=== PATIENT | male | born 1990 | race Caucasian/White ===

== ENCOUNTER 2024-10-07 01:42 | Emergency (ER) | payer BC, SELFPAY ==
--- OUTSIDE RECORDS SUMMARY | 2023-09-13 08:30 | XMS_ITS ---
Author Organization [facility] Address [address] [place] [address] Care Team Providers Care Service Superintendent Name Role Phone Reina Landeros Primary Care Provider [phone] REASON FOR VISIT bh-skin piler Encounters Encounter Location Date Provider Diagnosis [facility] [address] [place] [address] 09/13/2023 Reina Landeros Plan Of Treatment No Information Progress Notes * ANNA TOUSSAINTDOB: [birth year] (34 yo M)Acc No.[id number]:09/13/2023 Consult - Patient Patient: ANNA DON Provider: Bessy Landeros :1990 A ge:33 Y S ex:Male Date:09/13/2023 Address:[address] [place], [place] [id number] Subjective: * Chief Complaints: * 1 . Bh-skin piler. Objective: Therapeutic Interventions: Assessment: Plan: * Images: Care Plan Details* * Electronic signature of WILL Baez on 10/07/2024 at 01:51 AM EDT Sign off status: Pending * Provider: Bessy Landeros Date: 09/13/2023 Generated for Spencer winter/Jayden/Radha on: 10/07/2024 01:51 AM EDT
[2024-10-07 01:49] VITALS: BP 132/86; PULSE 88; TEMP 36.7; O2SAT 97; BMI 23.7
--- OUTSIDE RECORDS SUMMARY | 2024-10-07 01:51 | XMS_ITS | Patient Health Record ---
Author Organization [facility] es Address [address] [place] [address] Care Team Providers Care Grain Combiner Name Role Phone Reina Landeros Primary Care Provider Reason For Referral Reason referred by Memo byrd for counseling due to anxiety. Pt. is already established with Reina Irizarry (09/22/2023). Diagnosis 1 Anxiety (F41.9) Referral Organization [facility] Referred Organization [facility] Referred Provider Reina Landeros Referred Address [address] ,[place], [place],[address], Referred Provider Specialty Psychiatry Referral Priority Routine Problems Problem Type SNOMED Code ICD Code Onset Dates Problem Status W/U Status Risk Notes Problem Anxiety (63968266) Anxiety (F41.9) Active confirmed Problem Bipolar mixed affective disorder, moderate (F31.62) Active confirmed Encounters Encounter Location Date Provider Diagnosis [facility] [address] [place] [address] 11/16/2023 Reina Landeros Plan Of Treatment No Information Insurance Providers Payer Name Payer Address Payer Phone Subscriber Number Group Number Insured Name Patient Relationship to Insured Coverage Start Date Coverage End Date ANTHE[employer] Primary [address] [place] [address] [id number] DARIOANNA CATHERINE Self - patient is the insured 4
--- NOTE | 2024-10-07 02:31 | ED.WOUNDLAC1 ---
HPI - Wound/Laceration General Chief Complaint: Wound/Laceration Stated Complaint: laceration Time Seen by Provider: 10/07/24 02:29 Source: patient Mode of arrival: walk-in History of Present Illness HPI narrative: cut left 3rd dorsal MCP with a knife about 1 hour ago. patient is diabetic. Denies numbness or weakness Related Data Allergies Allergy/AdvReac Type Severity Reaction Status Date / Time Penicillins Allergy Hives Verified 10/07/24 01:48 Sulfa (Sulfonamide Allergy Hives Verified 10/07/24 01:48 Antibiotics) Review of Systems ROS Status of ROS 10 or more systems reviewed and unremarkable except as noted in history and below PFSH PFSH Social History Little interest or pleasure in doing things: not at all Feeling down, depressed, or hopeless: not at all Exam Constitutional Vital Signs, click to edit/add: Last Vital Signs Temp 98.1 F 10/07/24 01:49 Pulse 88 10/07/24 01:49 Resp 20 10/07/24 01:49 BP 132/86 10/07/24 01:49 Pulse Ox 97 10/07/24 01:49 O2 Del Method Room Air 10/07/24 01:49 Common normals: no apparent distress, average body habitus, oriented x3, no limitations, healthy appearing, alert and well nourished [facility] Common normals: normocephalic and head/scalp atraumatic Respiratory Common normals: normal respiratory effort, no retractions, no use of accessory muscles and clear to auscultation bilaterally Cardio Common normals: regular rate, regular rhythm, S1 normal heart sound and S2 normal heart sound Extremity Other: horizontal lac across 3rd MCP 2cm and superficial. lac with dried blood and closed at this time patient able to extend his fingers, including the 3rd finger but it is uncomfortable with extension of the 3rd finger Neuro Common normals: oriented x3, CN's II-XII intact bilaterally, moves all extremities and no focal motor deficits Psych Appearance: grossly normal Course Vital Signs Vital signs: Vital Signs Temperature 98.1 F 10/07/24 01:49 Pulse Rate 88 10/07/24 01:49 Respiratory Rate 20 10/07/24 01:49 Blood Pressure 132/86 10/07/24 01:49 Pulse Oximetry 97 10/07/24 01:49 Oxygen Delivery Method Room Air 10/07/24 01:49 Temperature 98.1 F 10/07/24 01:49 Pulse Rate 88 10/07/24 01:49 Respiratory Rate 20 10/07/24 01:49 Blood Pressure 132/86 10/07/24 01:49 Pulse Oximetry 97 10/07/24 01:49 Oxygen Delivery Method Room Air 10/07/24 01:49 MDM - Wound/Laceration MDM Narrative Medical decision making narrative: presents with laceration to left hand. laceration without findings of tendon lac from my examination and N/V intact. lac repaired without incident and patient discharged home Discharge Plan Discharge Chief Complaint: Wound/Laceration Clinical Impression: Laceration of hand, left Patient Disposition: Home, Self-Care Print Language: Moroccan Instructions: Laceration (ED) Additional Instructions: have wound rechecked in 2-3 days and stitches removed in 10 days Referrals: Physician,Non-Staff, MD [Primary Care Provider] - 1 week Procedures ED Procedure Instructions Procedures Procedures: lac left hand at dorsal 3rd MCP. 2cm superficial lac 1%lido without epi as a local. Site cleaned with betadine and rinsed with saline. Inspected and there is no FB nor any findings to support tendon lac. tissue overlying tendon in place -not lacerated- and tendon not visible repaired with # 4 5.0 nylon stitches. no complications
[2024-10-07] MEDS: LIDOCAINE HCL 1% 100 MG/10 ML MDV INJ (03:19)
[2024-10-10] MEDS: DIPHTH,PERTUSS(ACELL),TET VAC 0.5 ML SYRINGE IM (23:16)
== END 2024-10-07 03:20 | disposition home or self-care (01) ==
PROVIDERS: Emergency Provider Internal Medicine
DX: S61.412A Laceration without foreign body of left hand, initial encounter (principal); W26.0XXA Contact with knife, initial encounter
CPT/HCPCS: 99284